=== PATIENT | female | born 2000 | race Caucasian/White ===

== ENCOUNTER 2018-10-11 12:01 | Emergency (ER) | payer OTHER, SELFPAY ==
[2018-10-11 12:05] VITALS: BP 106/57; PULSE 58; RESP 16; TEMP 36.4; O2SAT 96; BMI 22.6
--- NOTE | 2018-10-11 12:21 | ED.HEATRA ---
HPI - Head Injury <ENMA Verma - Last Filed: 10/11/18 13:41> General Chief complaint: Head Injury Stated complaint: HIT IN HEAD AT WORK Time Seen by Provider: 10/11/18 12:05 Source: patient Mode of arrival: ambulatory Limitations: no limitations History of Present Illness HPI Narrative: This is a 18-year-old female, previous smoker, presents to ED with left-sided head/forehead pain. She reports she had hit on the left side forehead/head at 1030 by a corner of the door when it flung open by someone else at work. Patient denies loss of consciousness, weakness to extremities, neck tenderness, of vomiting. The patient reports her brain feels foggy and some vision changes as things are not straight. Patient reports she has been nauseated even before the head injury. She denies any recent head injury or has history of problem with blood clotting and she is not on blood thinner. Related Data Allergies Allergy/AdvReac Type Severity Reaction Status Date / Time SSRI AdvReac Uncoded 10/11/18 12:16 Review of Systems <ENMA Verma - Last Filed: 10/11/18 13:41> Review of Systems Narrative: General: Denies fever, chills, fatigue, malaise, sweats. HEENT: See HPI. Respiratory: Denies dyspnea, cough, wheezing, hemoptysis, sputum. Cardiovascular: Denies chest pain, palpitations, orthopnea, edema. Gastrointestinal: Denies nausea, vomiting, abdominal pain, diarrhea, constipation, melena. : Denies dysuria, frequency, incontinence, hematuria, urinary retention. Musculoskeletal: Denies weakness, joint pain or bony pain. Skin: Denies rash, skin lesions, or other. Neurologic: See HPI. Psychiatric: No concerning psychosocial issues. 12-point review of systems is negative except for those stated above. PFSH <ENMA Verma - Last Filed: 10/11/18 13:41> Medical History Depression (Acute) Social History Smoking Status: Former smoker Social History Smoking Status: Former smoker Exam <ENMA Verma - Last Filed: 10/11/18 13:41> Narrative Exam Narrative: GEN: Alert, oriented x 3, well appearing and nourished, and in no acute distress. Head: Normal cephalic, atraumatic. No scalp or temporal tenderness, palpable mass or rash. No step offs. EYES: Pupils are equal, round, and reactive to light and accommodation. Extraocular muscles are intact bilaterally. There is no subconjunctival hemorrhage, exudate and sclera non-icteric. ENT: Bilateral auditory canals and tympanic membranes cleaer. No hemotympanum. Hearing grossly intact. Nose without bleeding, purulent discharge or deviation. Facial sinuses nontender to palpate. Mucous membrane moist, no mucosal lesion. Throat without erythema, tonsillar hypertrophy or exudate. Uvula in midline, airway patent. Neck: Trachea in midline. No JVD, non-tender without lymphadenopathy. No masses or thyroid megaly. Supple, no midcervical tenderness, non-tender and no meningeal signs or step-offs. CARDIAC: Normal regular rate and rhythm without murmurs, gallops, or rubs. No chest wall tenderness. No peripheral edema, cyanosis or pallor. Capillary refill is less than 2 seconds. No carotid bruits. RESPIRATORY: Lungs are cleat to auscultate bilaterally. No cough, wheezes, rales, or rhonchi. No stridor, respiratory distress, increase work of breathing, or accessary muscle used. ABD: Abdomen soft, nontender and non-distended. No guarding or rebound tenderness to palpate. Bowel sounds are normal in all 4 quadrants. There is no palpable masses or organomegaly. EXT: Full painless ROM of all extremities with no loss of sensation, strength, effusion or edema. SKIN: Warm, dry, normal color for patient. No erythema, lesions or rash. BACK: Nontender without deformity or crepitance. No flank tenderness. NEUROLOGICAL: Alert and oriented to place, time and person. No facial droops, dysphasia. CN II-XII intact. Strength and sensation symmetric and intact throughout. PSYCHIATRIC: Good judgement and reason, without hallucinations, abnormal affect or abnormal behaviors during the examination. Initial Vital Signs Initial Vital Signs: Vital Signs Temperature 97.5 F L 10/11/18 12:05 Pulse Rate 58 L 10/11/18 12:05 Respiratory Rate 16 09/02/19 12:05 Blood Pressure 106/57 L 10/11/18 12:05 Pulse Oximetry 96 10/11/18 12:05 <Terry Amezcua DO - Last Filed: 10/11/18 13:54> Initial Vital Signs Initial Vital Signs: Vital Signs Temperature 97.5 F L 10/11/18 12:05 Pulse Rate 58 L 10/11/18 12:05 Respiratory Rate 16 10/11/18 12:05 Blood Pressure 106/57 L 10/11/18 12:05 Pulse Oximetry 96 10/11/18 12:05 Scores <ENMA Verma - Last Filed: 10/11/18 13:41> GCS [place] coma scale eye opening: Spontaneous Genie coma scale verbal response: Orientated Genie coma scale motor response: Obey commands Genie coma scale total score: 15 Nexus Score for C-Spine Focal Neurologic deficit present: No Midline spinal tenderness present: No Altered level of conciousness present: No Intoxication present: No Distracting Injury Present: No Nexus Criteria for C-spine: 0 PECARN GCS less than or equal to 14, palpable skull fracture or signs of AMS: No LOC, or vomiting, or severe mechanism of injury, or severe headache: No Multiple findings or worsening symptoms: No Course <ENMA Verma - Last Filed: 10/11/18 13:41> Orders Ordered: Discontinued Medications Acetaminophen (Tylenol) 975 mg PO NOW ONE Stop: 10/11/18 12:20 Last Admin: 10/11/18 12:24 Dose: 975 mg Documented by: ALEX Vital Signs Vital signs: Vital Signs - 8 hr 10/11/18 12:05 Temperature 97.5 F L Pulse Rate 58 L Respiratory Rate 16 Blood Pressure 106/57 L Pulse Oximetry 96 <Terry Amezcua DO - Last Filed: 10/11/18 13:54> Orders Ordered: Discontinued Medications Acetaminophen (Tylenol) 975 mg PO NOW ONE Stop: 10/11/18 12:20 Last Admin: 10/11/18 12:24 Dose: 975 mg Documented by: ALEX Vital Signs Vital signs: Vital Signs - 8 hr 10/11/18 12:05 Temperature 97.5 F L Pulse Rate 58 L Respiratory Rate 16 Blood Pressure 106/57 L Pulse Oximetry 96 MDM - Head Injury <ENMA Verma - Last Filed: 10/11/18 13:41> Differential Diagnosis Differential diagnosis: Likely concussion without loss of consciousness and closed head injury Medical Records Attestation: I reviewed the patient's medical records. [facility] Narrative Medical decision making narrative: The patient had sustained closed head injury at 10:30 a.m. today at work. She complain of headache with some visual complaints but did not have loss of consciousness, mid cervical tenderness or vomiting. Patient was medicated with Tylenol and ice pack or headache. She had not had any recent head injury, not on blood thinner, and her neuro exam was unremarkable. I discussed return precautions with the patient and advised to take [id number] Tylenol and/or Motrin as needed for discomfort and use ice pack for next 24 hours. Work note has been provided for a day if she needs to be take a day off. Advised brain rest for next couple of days and avoid getting another head injury. Patient agrees with treatment plan and no further questions were expressed. L&I documentation has been completed. Discharge Plan Departure Patient Disposition: Home Clinical Impression: Closed head injury Qualifiers: Encounter type: initial encounter Qualified Code(s): S09.90XA - Unspecified injury of head, initial encounter Concussion without loss of consciousness Qualifiers: Encounter type: initial encounter Qualified Code(s): S06.0X0A - Concussion without loss of consciousness, initial encounter Discharge Date/Time: 10/11/18 13:00 Instructions: DI for Closed Head Injury Activity Restrictions/Additional Instructions: You have been diagnosed with [closed head injury. He may have some headache, dizziness next few days.]. What to do: *Take your medications as directed. You can take [id number] type Tylenol and or Motrin as needed for headache. *Follow up with your primary care provider in 2-3 days, call for an appointment. Let them know you were seen in the ED and that we asked you to be seen in follow up. *Return to ED if you have any new, worsening, or concerning symptoms, such as [seizure activity, chest pain, breathing trouble, severe headache, weakness to limbs, vision change, unable to tolerate fluids, any acute concerns]. Referrals: [facility] Resources [Outside] Stand Alone Forms: Work Release Note <Terry Amezcua DO - Last Filed: 10/11/18 13:54> Sign Out Provider Sign Out Attestation: I was available for consultation during this patient's emergency department encounter
[2018-10-11] MEDS: ACETAMINOPHEN 325 MG TABLET 975 MG PO (12:24)
== END 2018-10-11 13:00 | disposition home or self-care (01) ==
PROVIDERS: Emergency Provider Nurse Practitioner Family
DX: S09.90XA Unspecified injury of head, initial encounter (principal); S06.0X0A Concussion without loss of consciousness, initial encounter; Y99.0 Civilian activity done for income or pay
CPT/HCPCS: 99282

== ENCOUNTER → 2019-05-08 11:39 | Outpatient (CLI) | payer OTHER, MEDICAID, SELFPAY ==
[2019-05-08 13:41] LABS: Influenza A - CEPHEID Flu A NEGATIVE (NEGATIVE); Influenza B - CEPHEID Flu B NEGATIVE (NEGATIVE)
[2019-05-10 04:11] LABS: COVID19 Sendout Not Detected (Not Detected)
== END ==
PROVIDERS: Visit Provider Physician Assistant
DX: R05 Cough (principal)
CPT/HCPCS: 87502; 87635